=== PATIENT | male | born 1995 | race Caucasian/White ===

== ENCOUNTER 2016-10-30 19:20 | Emergency (ER) | payer SELFPAY ==
[2016-10-30] MEDS ORDERED: LACTATED RINGERS 1,000 ML IVS ONE (19:43)
--- NOTE | 2016-10-30 20:01 | RAD ---
EXAM DESCRIPTION: X-RAY CHEST- ONE VIEW AND ABDOMEN/ PELVIS -2.0 VIEWS CLINICAL HISTORY: Right upper quadrant pain COMPARISON: None. TECHNIQUE: 1.0 view of the chest and 2.0 views of the abdomen and pelvis. FINDINGS: There are no discrete air space infiltrates, pneumothoraces or pleural effusions. The pulmonary vascularity is normal. The cardiomediastinal contour is unremarkable for patient'audra and sex. There is no evidence of free air under the hemidiaphragms. There is no evidence of small or large bowel obstruction, ileus or bowel wall thickening. There is no evidence of any significant constipation. There are no radiopaque calculi in the outline of the urinary tract. IMPRESSION: There are no significant findings in the chest, abdomen and pelvis Electronically signed by: Orville Lowe MD 10/30/2016 19:58
[2016-10-30 20:18] VITALS: BP 133/73; TEMP 97.8; O2SAT 98
--- NOTE | 2016-10-30 21:22 | CT ---
EXAM DESCRIPTION: CT ABDOMEN PELVIS WITH IV CONTRAST CLINICAL HISTORY: ruq pain, n/v recurrent COMPARISON: None Available. TECHNIQUE: Contiguous axial images of the abdomen and pelvis were obtained followed by reconstruction images. FINDINGS: Patient is status post appendectomy. The liver, spleen, pancreas and kidneys are within normal limits. There is no hydronephrosis or renal stones. The gallbladder is unremarkable by CT criteria. Adrenal glands are within normal limits. Aorta is of normal caliber and tapering. There is no free fluid in the abdomen or pelvis. There is no bowel obstruction. There is no stranding of the mesenteric fat to suggest an inflammatory response. IMPRESSION: No acute intra-abdominal abnormality. Electronically signed by: Julito Vega 10/30/2016 21:20
--- NOTE | 2016-10-30 21:40 | ED.PDOC ---
History of Present Illness - General Chief Complaint: Abdominal Pain Stated Complaint: ruq abd pain Time Seen by Provider: 10/30/16 19:41 Source: patient, family Exam Limitations: no limitations - History of Present Illness Initial Comments: the patient is a 21-year-old male presenting to the emergency room secondary to right upper quadrant pain present constantly for the last 2-3 days but worse after he eats in the right upper quadrant. No fevers. Has thrown up a couple of times. He had a similar bout of this a year or 2 ago. He had negative CT scan at that time. He has not had any fevers. No trauma. He has been having some foul-smelling stools. No blood in his stools. No blood or bile in the vomitus. Severity: moderate Improving Factors: nothing Worsening Factors: eating Associated Symptoms: loss of appetite, malaise, nausea/vomiting Allergies/Adverse Reactions: Allergies NO KNOWN ALLERGY Allergy (Verified 12/28/14 19:45) Home Medications: Ambulatory Orders Azithromycin 500 mg PO DAILY #7 tab 02/09/16 Ciprofloxacin [Cipro] 500 mg PO BID #20 tab 10/30/16 Metronidazole 500 mg PO TID #30 tab 10/30/16 Sucralfate Tab [Carafate Tab] 1 gm PO QID #120 tab 10/30/16 Review of Systems - Review of Systems Constitutional: States: malaise EENTM: States: no symptoms reported Respiratory: States: no symptoms reported Cardiology: States: no symptoms reported Gastrointestinal/Abdominal: States: abdominal pain, nausea, vomiting Genitourinary: States: no symptoms reported Musculoskeletal: States: no symptoms reported Skin: States: no symptoms reported Neurological: States: no symptoms reported Endocrine: States: no symptoms reported All other Systems: No Change from Baseline Past Medical History (General) - Patient Medical History Hx Seizures: No Hx Stroke: No Hx Asthma: Yes - Activity induced. Hx Cardiac Disorders: No Hx Congestive Heart Failure: No Hx Hypertension: No Hx Thyroid Disease: No Hx Diabetes: No Surgical History: appendectomy - Vaccination History Hx Tetanus, Diphtheria Vaccination: Yes Hx Influenza Vaccination: Yes Hx Pneumococcal Vaccination: No - Social History Hx Tobacco Use: Yes Hx Chewing Tobacco Use: Yes Hx Alcohol Use: Yes Hx Substance Use: No Hx Substance Use Treatment: No Hx Depression: No Hx Physical Abuse: No Hx Emotional Abuse: No Hx Suspected Abuse: No - Female History Patient : No Family Medical History - Family History Mother Family History: Unknown Physical Exam - Physical Exam General Appearance: Alert, Comfortable, No apparent distress Eye Exam: bilateral normal Ears, Nose, Throat: normal ENT inspection, normal pharynx Neck: non-tender, full range of motion, supple Respiratory: chest non-tender, lungs clear, normal breath sounds, no respiratory distress, no accessory muscle use Cardiovascular/Chest: normal peripheral pulses, regular rate, rhythm, no edema Peripheral Pulses: radial,right: 2+, radial,left: 2+ Gastrointestinal/Abdominal: soft, other - right upper quadrant discomfort to deep palpation. No true rebound or peritoneal signs. No palpable mass. Rectal Exam: deferred Back Exam: normal inspection, no CVA tenderness Extremity: normal range of motion, non-tender, normal inspection, no pedal edema , normal capillary refill Neurologic: alert, normal mood/affect, oriented x 3 Skin Exam: normal color Comments: Vital Signs - 8 hr 10/30/16 20:15 Temperature 97.8 F Pulse Rate [ 80 Left] Respiratory 16 Rate Blood Pressure 133/73 [Left Arm] O2 Sat by Pulse 98 Oximetry Progress - Progress Progress: 10/30/16 21:43 the patient is a 21-year-old male with right upper quadrant pain of unknown origin. He does have a mild leukocytosis. He may be having a mild recurrent cholecystitis or he may be having a recurrence of mesenteric adenitis or possibly duodenal ulcers giving him problems. The patient will be placed on ciprofloxacin, Flagyl, Zantac and Carafate. He needs to keep himself well- hydrated. He needs to avoid large meals or spicy fatty foods. ER warnings were given for any acute worsening. If he does worsen in spite of the above treatment and repeat evaluation possibly including a HIDA scan may be warranted. - Results/Orders Results/Orders: Laboratory Tests 10/30/16 10/30/16 20:05 20:18 WBC 13.2 H RBC 5.57 Hgb 16.0 Hct 47.1 MCV 84.5 MCH 28.7 MCHC 34.0 RDW 13.1 Plt Count 261 MPV 8.2 Absolute Neuts (auto) 10.20 H Absolute Lymphs (auto) 2.20 Absolute Monos (auto) 0.60 Absolute Eos (auto) 0.10 Absolute Basos (auto) 0.10 Neutrophils % 77.4 Lymphocytes % 17.0 L Monocytes % 4.2 Eosinophils % 0.8 L Basophils % 0.6 PT 11.8 INR 1.050 PTT (SP) 33.3 Sodium 138 Potassium 3.7 Chloride 104 Carbon Dioxide 26 Anion Gap 11.7 L BUN 10 Creatinine 0.81 BUN/Creatinine Ratio 12.3 Random Glucose 88 Serum Osmolality 274.1 L Calcium 9.6 Total Bilirubin 0.4 AST 20 ALT 30 Alkaline Phosphatase 60 L Creatine Kinase 65 CK-MB (CK-2) 1.1 CK-MB (CK-2) % Not Reportable Troponin I < 0.02 Serum Total Protein 8.1 Albumin 4.8 Globulin 3.3 Albumin/Globulin Ratio 1.5 Amylase 58 Lipase 28 Urine Color Yellow Urine Appearance Clear Urine pH 6.5 Ur Specific [place] 1.010 Urine Protein Negative Urine Glucose (UA) Negative Urine Ketones Negative Urine Blood Negative Urine Nitrite Negative Urine Bilirubin Negative Urine Urobilinogen 0.2 Ur Leukocyte Esterase Negative Urine RBC 0-1 Urine WBC 0 Ur Epithelial Cells 0 Urine Bacteria 0 x-ray of the abdomen is essentially benign. CT scan of the abdomen and pelvis is also essentially benign. Departure - Departure Clinical Impression: Abdominal pain Qualifiers: Abdominal location: right upper quadrant Qualifier Code: (R10.11) Right upper quadrant pain Disposition: Discharge to Home or Self Care Condition: Fair Departure Forms: ED Discharge - Pt. Copy, Patient Portal Self Enrollment Instructions: DI for Abdominal Pain-Adult Diet: bland diet Activity: increase activity as tolerated Referrals: Raji Arreola MD [Primary Care Provider] - 1-2 Weeks Prescriptions: Sucralfate Tab [Carafate Tab] 1 gm PO QID #120 tab Ciprofloxacin [Cipro] 500 mg PO BID #20 tab Metronidazole 500 mg PO TID #30 tab Home Medications: Ambulatory Orders Azithromycin 500 mg PO DAILY #7 tab 02/09/16 Ciprofloxacin [Cipro] 500 mg PO BID #20 tab 10/30/16 Metronidazole 500 mg PO TID #30 tab 10/30/16 Sucralfate Tab [Carafate Tab] 1 gm PO QID #120 tab 10/30/16 Additional Instructions: the patient is a 21-year-old male with right upper quadrant pain of unknown origin. He does have a mild leukocytosis. He may be having a mild recurrent cholecystitis or he may be having a recurrence of mesenteric adenitis or possibly duodenal ulcers giving him problems. The patient will be placed on ciprofloxacin, Flagyl, Zantac and Carafate. He needs to keep himself well- hydrated. He needs to avoid large meals or spicy fatty foods. ER warnings were given for any acute worsening. If he does worsen in spite of the above treatment and repeat evaluation possibly including a HIDA scan may be warranted. he needs to take Zantac 150 mg twice daily [id number].
[2016-10-30] MEDS ORDERED: metroNIDAZOLE 500 MG TAB PO ONE (21:42)
[2016-10-30] MEDS ORDERED: LIDOCAINE VIS-MYLANTA 30 ML UD PO ONE (21:42)
[2016-10-30] MEDS ORDERED: SUCRALFATE 1 GM/10 ML 1 GM UD PO ONE (21:42)
[2016-10-30] MEDS ORDERED: CIPROFLOXACIN 500 MG TAB PO ONE (21:42)
== END 2016-10-30 22:25 | disposition home or self-care (01) ==
LOC: ER 19:20
DX: R10.11 Right upper quadrant pain (principal); J45.998 Other asthma; Z87.891 Personal history of nicotine dependence
CPT/HCPCS: 74020; 74177; 80053; 81001; 82150; 82550; 82553; 83690; 84484; 85025; 85610; 85730; J7120

== ENCOUNTER 2019-05-16 17:20 | Emergency (ER) | payer SELFPAY ==
--- NOTE | 2019-05-16 17:48 | ED.PDOC ---
History of Present Illness - General Chief Complaint: Problem Time Seen by Provider: 05/16/19 17:45 Source: patient, RN notes reviewed, Vital Signs reviewed Additional Information: 24 YEAR OLD PRESENTS WITH RIGHT TESTICULAR PAIN ONSET 3 DAYS PROGRESSIVE WORSE SINCE THIS MORNING HE HAS NO URINARY SYMPOTMS NO URETHRAL DISCHARGE NO FEVER NO CHILLS NO TESTICULAR TRAUMA - History of Present Illness Timing/Duration: 24 hours Severity: moderate Worsening Factors: nothing Associated Symptoms: denies symptoms Allergies/Adverse Reactions: Allergies NO KNOWN ALLERGY Allergy (Verified 12/28/14 19:45) Home Medications: Ambulatory Orders Azithromycin 500 mg PO DAILY #7 tab 02/09/16 Ciprofloxacin [Cipro] 500 mg PO BID #20 tab 10/30/16 Metronidazole 500 mg PO TID #30 tab 10/30/16 Sucralfate Tab [Carafate Tab] 1 gm PO QID #120 tab 10/30/16 Review of Systems - Review of Systems Constitutional: States: no symptoms reported EENTM: States: no symptoms reported Respiratory: States: no symptoms reported Cardiology: States: no symptoms reported Gastrointestinal/Abdominal: States: no symptoms reported Genitourinary: States: see HPI Musculoskeletal: States: no symptoms reported Skin: States: no symptoms reported Neurological: States: no symptoms reported Endocrine: States: no symptoms reported Hematologic/Lymphatic: States: no symptoms reported Past Medical History (General) - Patient Medical History Hx Seizures: No Hx Stroke: No Hx Asthma: Yes - Activity induced. Hx Cardiac Disorders: No Hx Congestive Heart Failure: No Hx Hypertension: No Hx Thyroid Disease: No Hx Diabetes: No - Vaccination History Hx Tetanus, Diphtheria Vaccination: Yes Hx Influenza Vaccination: Yes Hx Pneumococcal Vaccination: No - Social History Hx Tobacco Use: Yes Hx Chewing Tobacco Use: Yes Hx Alcohol Use: Yes Hx Substance Use: No Hx Substance Use Treatment: No Hx Depression: No Hx Physical Abuse: No Hx Emotional Abuse: No Hx Suspected Abuse: No - Female History Patient : No Family Medical History - Family History Mother Family History: Unknown Physical Exam - Physical Exam General Appearance: Alert, Comfortable, Well Developed, Well Groomed, Well Hydrated Eye Exam: bilateral normal Ears, Nose, Throat: hearing grossly normal, normal ENT inspection, normal pharynx Neck: non-tender, full range of motion, supple Respiratory: chest non-tender, lungs clear, normal breath sounds, no respiratory distress, no accessory muscle use Cardiovascular/Chest: normal peripheral pulses, regular rate, rhythm, no edema, no gallop, no JVD Gastrointestinal/Abdominal: normal bowel sounds, non tender, soft, no organomegaly, no pulsatile mass, other - EXAM OF TESTICLES NO MASS CREMASTERIC REFLEX PRESENT CORD STRUCTURE ON THE RIGHT IS TENDER TESTICLE IS IN HORIZONTAL LIE Back Exam: normal inspection, no CVA tenderness, no vertebral tenderness Extremity: normal range of motion, non-tender, normal inspection, no pedal edema Progress - Results/Orders Results/Orders: NO TESTICULAR SONO AVAILABLE IN THIS FACILITY AT THIS TIME TIS WAS DISCUSSED WITH PATIENT AND SUGGESTED WE COULD TRANSPORT HIM TO [facility] FOR A TESTICULAR SONO HE PREFERS TO DRIVE THERE BY HIMSELF RATHER THAN INCUR A AMBULANCE BILL WHICH IS REASONABLE PATIENT OPTS TO DRIVE HIMSELF TO [facility] HE LIVES IN [place] Departure - Departure Clinical Impression: Acute epididymitis Time of Disposition: 17:53 Disposition: Discharge to Home or Self Care Departure Forms: ED Discharge - Pt. Copy, Patient Portal Self Enrollment Referrals: Raji Arreola MD [Primary Care Provider] - 1-2 Weeks Home Medications: Ambulatory Orders Azithromycin 500 mg PO DAILY #7 tab 02/09/16 Ciprofloxacin [Cipro] 500 mg PO BID #20 tab 10/30/16 Metronidazole 500 mg PO TID #30 tab 10/30/16 Sucralfate Tab [Carafate Tab] 1 gm PO QID #120 tab 10/30/16 Comments: RECOMMEND TESTICULAR SONOGRAM
[2019-05-16 19:51] VITALS: BP 125/73; TEMP 97.2; O2SAT 99
== END 2019-05-16 18:02 | disposition home or self-care (01) ==
LOC: ER 17:20
DX: N45.1 Epididymitis (principal); J45.909 Unspecified asthma, uncomplicated; Z87.891 Personal history of nicotine dependence